=== PATIENT | male | born 1960 | race Two or more races ===

== ENCOUNTER 2025-07-18 09:12 | Emergency (ER) | payer MEDICARE ==
[~2025-07-18] VITALS: Ht 167.6 cm; Wt 62.6 kg
[2025-07-18 09:16] VITALS: BP 152/70; TEMP 98.1
[2025-07-18] MEDS ORDERED: AMOX500C2 PO (09:37)
[2025-07-18 09:48] VITALS: O2SAT 98
[2025-07-18] MEDS: AMOXICILLIN TRIHYDRATE 500 MG CAPSULE PO ONE (10:01)
[2025-07-18] MEDS: IBUPROFEN 600 MG TABLET PO ONE (10:01)
== END 2025-07-18 10:03 | disposition home or self-care (01) ==
LOC: ER 09:20
DX: J02.9 Acute pharyngitis, unspecified (principal); I10 Essential (primary) hypertension; E11.9 Type 2 diabetes mellitus without complications